=== PATIENT | male | born 2000 | race African-American/Black ===

== ENCOUNTER 2018-12-19 13:32 | Emergency (ER) | payer SELFPAY ==
[~2018-12-19] VITALS: Ht 170.2 cm; Wt 77.0 kg
[2018-12-19] MEDS ORDERED: ONDANSETRON 4MG ODT PO STA (15:34)
[2018-12-19] MEDS ORDERED: VISCOUS LIDOCAINE 2% 15 ML UDC PO STA (15:34)
[2018-12-19] MEDS ORDERED: MAGNESIUM/ALUMINUM HYDROXIDE/SIMETHICONE 30ML UDC PO STA (15:34)
[2018-12-19] MEDS ORDERED: FAMOTIDINE 20MG TABLET PO ONE (15:45)
[2018-12-19 16:05] LABS: CHLORIDE 104 mEq/L (98-107)
[2018-12-19 16:10] LABS: BASOPHILS % 0.2 % (0.0-2.0); EOSINOPHILS % 0.2 % (0.0-5.0); HEMOGLOBIN. 15.7 g/dL (14.0-18.0); LYMPHOCYTES % 8.9 % (20.0-50.0); MEAN CORPUSCULAR HEMOGLOBIN 32.9 pg (28.0-32.0); MEAN CORPUSCULAR VOLUME 96.5 fL (80.0-94.0); MEAN PLATELET VOLUME 9.3 fl (7.4-10.4); MONOCYTES % 2.2 % (2.0-8.0); NEUTROPHILS % 88.5 % (40.0-76.0); PLATELET 219 x1000/uL (130-400); RED BLOOD CELL COUNT 4.76 mill/uL (4.7-6.1); RED CELL DISTRIBUTION WIDTH 13.5 % (11.6-14.6)
[2018-12-19 16:58] LABS: CLARITY URINE CLEAR (CLEAR); COLOR URINE YELLOW (YELLOW); KETONES URINE NEGATIVE (NEGATIVE); LEUKOCYTE ESTERASE URINE NEGATIVE (NEGATIVE); NITRITE URINE NEGATIVE (NEGATIVE); OCCULT BLOOD URINE 1+ (NEGATIVE); PROTEIN URINE NEGATIVE (NEGATIVE); SPECIFIC GRAVITY URINE 1.006 (1.005-1.030); UROBILINOGEN URINE 0.2 E.U./dL (0.2-1.0)
[2018-12-19] MEDS ORDERED: IOHEXOL-300 100 ML BOTTLE ONE (18:51)
[2018-12-19] MEDS ORDERED: SODIUM CHLORIDE 0.9% 1,000 ML IV ONE (19:15)
[2018-12-19 19:35] VITALS: BP 142/77
== END 2018-12-19 19:44 | disposition home or self-care (01) ==
LOC: ER 13:32
DX: R10.13 Epigastric pain (principal); R11.0 Nausea; F17.210 Nicotine dependence, cigarettes, uncomplicated; F12.10 Cannabis abuse, uncomplicated; Z88.6 Allergy status to analgesic agent
CPT/HCPCS: 36415; 74177; 80053; 81003; 83690; 85025; 99284; 99406; J7030; Q0162; Q9967; 99283